=== PATIENT | male | born 1960 | race Caucasian/White ===

== ENCOUNTER 2017-09-14 01:08 | Outpatient (RCR) | payer BC, SELFPAY | END 2017-10-08 | LOC: INF 01:08 | PROVIDERS: PCP Family Medicine; Visit Provider Family Medicine | DX: D56.9 Thalassemia, unspecified (principal) | CPT/HCPCS: 99195 ==

== ENCOUNTER 2018-10-27 07:00 | Outpatient (CLI) | payer BC, SELFPAY ==
[2018-10-27 12:52] LABS: HCT 37.6 % (40.0-50.0); HGB 12.4 g/dL (13.5-17.5); Mean Corpuscular Hemoglobin 19.7 pg (27.0-33.0); Mean Corpuscular Volume 59.6 fL (80-95); Mean Platelet Volume 10.2 fL (8.0-11.0); Platelet Count 336 x1000/uL (130-400); RBC 6.31 m/cumm (4.50-6.00); RBC Distribution Width 17.7 % (11.8-14.1)
[2018-10-27 13:25] LABS: Calculated LDL 133 mg/dL; Cholesterol 189 mg/dL (50-200); Ferritin 147 ng/mL (8-388); HDL Cholesterol 38 mg/dL (40-60); Triglyceride 93 mg/dL (30-150)
== END 2018-10-27 07:20 ==
PROVIDERS: PCP Family Medicine; Visit Provider Family Medicine
DX: Z00.00 Encounter for general adult medical examination without abnormal findings (principal); Z12.5 Encounter for screening for malignant neoplasm of prostate; D64.9 Anemia, unspecified
CPT/HCPCS: 36415; 80061; 84153; 85027; 82728

== ENCOUNTER 2018-12-21 07:27 | Outpatient (CLI) | payer BC, SELFPAY ==
[2018-12-21 07:41] LABS: Abs Immature Grans 0.01 k/cumm (0.0-0.09); Absolute Basophil Count 0.03 k/cumm (0.0-0.2); Absolute Eosinophil Count 0.15 k/cumm (0.0-0.7); Absolute Lymphocyte Count 2.01 k/cumm (1.2-3.4); Absolute Monocyte Count 0.55 k/cumm (0.11-0.7); Absolute Neutrophil Count 2.65 k/cumm (1.2-6.7); Basophils % 0.6; Eosinophils % 2.8; HCT 38.8 % (40.0-50.0); HGB 12.7 g/dL (13.5-17.5); Immature Grans % 0.2; Lymphocytes % 37.2; Mean Corp. HGB Concentration 32.7 g/dL (32.0-36.0); Mean Corpuscular Hemoglobin 19.5 pg (27.0-33.0); Mean Corpuscular Volume 59.6 fL (80-95); Monocytes % 10.2; Platelet Count 351 x1000/uL (130-400); RBC 6.51 m/cumm (4.50-6.00); RBC Distribution Width 17.6 % (11.8-14.1)
[2018-12-21 08:05] LABS: Anisocytosis 1+; Diff Comment RBC Morph Reviewed; Hypochromasia 1+; Microcytosis 2+
[2018-12-21 08:06] LABS: Poikilocytes 2+
[2018-12-21 08:37] LABS: Anion Gap 10.2 mmol/L (3-11); BUN 22 mg/dL (7-18); CO2 28.8 mmol/L (21.0-32.0); CREATININE 0.95 mg/dL (0.70-1.30); Calcium 9.4 mg/dL (8.5-10.1); Chloride 103 mmol/L (98-107); Glucose 95 mg/dL (70-100); Potassium 4.3 mmol/L (3.5-5.1); Sodium 142 mmol/L (136-145)
== END 2018-12-21 07:47 ==
PROVIDERS: PCP Family Medicine; Visit Provider Family Medicine
DX: Q21.1 Atrial septal defect (principal); Z86.73 Personal history of transient ischemic attack (TIA), and cerebral infarction without residual deficits; D56.3 Thalassemia minor
CPT/HCPCS: 36415; 80048; 85025

== ENCOUNTER 2019-01-30 01:24 | Outpatient (RCR) | payer BC, SELFPAY | END 2019-02-07 23:59 | disposition home or self-care (01) | LOC: INF 01:24 | PROVIDERS: PCP Family Medicine; Visit Provider Naturopath | DX: D56.1 Beta thalassemia (principal) | CPT/HCPCS: 99195 ==

== ENCOUNTER 2019-01-30 07:26 | Outpatient (CLI) | payer BC, SELFPAY ==
[2019-01-30 07:45] LABS: HCT 38.5 % (40.0-50.0); HGB 12.5 g/dL (13.5-17.5)
[2019-01-30 08:34] LABS: Ferritin 124 ng/mL (26-388)
== END 2019-01-30 07:46 ==
PROVIDERS: PCP Family Medicine; Visit Provider Naturopath
DX: D56.1 Beta thalassemia (principal)
CPT/HCPCS: 36415; 82728; 85014; 85018

== ENCOUNTER 2019-07-18 03:35 | Outpatient (CLI) | payer BC, SELFPAY ==
[2019-07-18 07:34] LABS: HCT 37.1 % (40.0-50.0); HGB 12.3 g/dL (13.5-17.5); Mean Corp. HGB Concentration 33.2 g/dL (32.0-36.0); Mean Corpuscular Hemoglobin 19.7 pg (27.0-33.0); Mean Corpuscular Volume 59.5 fL (80-95); Mean Platelet Volume 9.6 fL (8.0-11.0); RBC 6.24 m/cumm (4.50-6.00)
[2019-07-18 08:08] LABS: Iron 147 ug/dL (65-175); Total Iron Binding Capacity 253 ug/dL (250-450); Transferrin Sat 58 % (20-55)
[2019-07-18 08:17] LABS: Platelet Count 289 x1000/uL (130-400)
[2019-07-18 08:21] LABS: Calculated LDL 135 mg/dL (<100); Cholesterol 198 mg/dL (<200); Ferritin 151 ng/mL (26-388); HDL Cholesterol 41 mg/dL (40-60); Triglyceride 114 mg/dL (<150)
[2019-07-19 09:51] LABS: PSA, Screening 2.3 ng/mL (0.0-3.5)
[2019-07-20 18:08] LABS: 25-Hydroxy D Total 33 ng/mL; 25-Hydroxy D2 <4.0 ng/mL; 25-Hydroxy D3 33 ng/mL
== END 2019-07-18 03:55 ==
PROVIDERS: PCP Family Medicine; Visit Provider Naturopath
DX: D56.1 Beta thalassemia (principal); E55.9 Vitamin D deficiency, unspecified; R39.15 Urgency of urination; E78.5 Hyperlipidemia, unspecified
CPT/HCPCS: 36415; 80061; 82306; 84153; 85027; 82728; 83540; 83550

== ENCOUNTER 2019-07-25 00:44 | Outpatient (RCR) | payer BC, SELFPAY | END 2019-08-08 23:59 | disposition home or self-care (01) | LOC: INF 00:44 | PROVIDERS: PCP Family Medicine; Visit Provider Naturopath | DX: D56.9 Thalassemia, unspecified (principal) | CPT/HCPCS: 99195 ==

== ENCOUNTER 2020-09-10 03:49 | Outpatient (CLI) | payer BC, SELFPAY ==
[2020-09-10 08:54] LABS: Calculated LDL 169 mg/dL (<100); Cholesterol 225 mg/dL (<200); HDL Cholesterol 41 mg/dL (40-60); Triglyceride 77 mg/dL (<150)
== END 2020-09-10 03:50 | disposition home or self-care (01) ==
LOC: LBO 03:51
PROVIDERS: PCP Nurse Practitioner; Visit Provider Nurse Practitioner
DX: E78.5 Hyperlipidemia, unspecified (principal)
CPT/HCPCS: 36415; 80061

== ENCOUNTER 2020-10-31 18:33 | Outpatient (REF) | payer BC, SELFPAY ==
[2020-11-02 13:24] LABS: COVID-19 RT-PCR UVMMC Result Negative (Negative)
== END 2020-10-31 18:34 | disposition home or self-care (01) ==
LOC: LBN 18:33
PROVIDERS: PCP Nurse Practitioner; Visit Provider Nurse Practitioner
DX: Z20.822 Contact with and (suspected) exposure to COVID-19 (principal); M79.18 Myalgia, other site; R53.83 Other fatigue
CPT/HCPCS: U0003

== ENCOUNTER 2020-11-05 04:27 | Outpatient (CLI) | payer BC, SELFPAY ==
[2020-11-06 11:17] LABS: Lyme Ab w Rflx to Lyme Confirm Positive (Negative)
[2020-11-06 12:05] LABS: Lyme IgG Ab Positive (Negative); Lyme IgM Ab Positive (Negative)
[2020-11-07 19:17] LABS: Anaplasma phagocytophilum Negative (Negative); B. miyamotoi PCR Negative (Negative); Babesia divergens/MO-1 Negative (Negative); Babesia duncani Negative (Negative); Babesia microti Negative (Negative); Ehrlichia chaffeensis Negative (Negative); Ehrlichia ewingii/canis Negative (Negative); Ehrlichia muris eauclairensis Negative (Negative)
== END 2020-11-05 04:28 | disposition home or self-care (01) ==
LOC: LBO 04:27
PROVIDERS: PCP Nurse Practitioner; Visit Provider Nurse Practitioner
DX: M35.89 Other specified systemic involvement of connective tissue; R53.83 Other fatigue; M79.10 Myalgia, unspecified site; M25.50 Pain in unspecified joint
CPT/HCPCS: 36415; 86617; 87798; 86618

== ENCOUNTER 2020-11-11 03:53 | Outpatient (CLI) | payer BC, SELFPAY ==
[2020-11-11 13:33] LABS: Kit/Specimen SENT
== END 2020-11-11 03:54 | disposition home or self-care (01) ==
LOC: LBO 03:53
PROVIDERS: PCP Nurse Practitioner; Visit Provider Naturopath
DX: M79.18 Myalgia, other site (principal); M25.59 Pain in other specified joint; R53.83 Other fatigue
CPT/HCPCS: 36415

== ENCOUNTER 2021-01-29 02:54 | Outpatient (CLI) | payer BC, SELFPAY ==
[2021-01-29 08:03] LABS: Abs Immature Grans 0.02 10^3/uL (0.0-0.06); Absolute Basophil Count 0.04 10^3/uL (0.0-0.2); Absolute Eosinophil Count 0.24 10^3/uL (0.0-0.7); Absolute Lymphocyte Count 2.46 10^3/uL (1.2-3.4); Absolute Neutrophil Count 2.93 10^3/uL (1.2-6.7); Basophils % 0.6; Eosinophils % 3.9; HCT 40.6 % (40.0-50.0); HGB 12.6 g/dL (13.5-17.5); Immature Grans % 0.3; Lymphocytes % 39.7; MCV 61.2 fL (80-95); MPV 9.9 fL (8.0-11.0); Monocytes % 8.1; Neutrophils % 47.4; Nucleated RBC 0 %; Platelet Count 324 10^3/uL (130-400); RBC 6.63 10^6/uL (4.36-5.78); RDW 17.8 % (11.8-14.1); RDW-SD 34.1 fL; WBC 6.19 10^3/uL (4.4-10.8)
[2021-01-29 08:34] LABS: Diff Comment RBC Morph Reviewed; Hypochromasia 1+; Microcytosis 3+
[2021-01-29 08:41] LABS: Hemoglobin A1C 5.5 % (<5.7)
[2021-01-29 09:06] LABS: Iron 63 ug/dL (65-175); Total Iron Binding Capacity 239 ug/dL (250-450); Transferrin Sat 26 % (20-55)
[2021-01-29 09:31] LABS: ALT 32 U/L (16-63); AST 19 U/L (15-37); Albumin 4.3 g/dL (3.4-5.0); Alkaline Phosphatase 61 U/L (46-116); Anion Gap 9.2 mmol/L (3-11); BUN 23 mg/dL (7-18); Bilirubin, Total 0.5 mg/dL (0.2-1.0); CO2 27.8 mmol/L (21.0-32.0); Calcium 9.1 mg/dL (8.5-10.1); Calculated LDL 161 mg/dL (<100); Chloride 103 mmol/L (98-107); Cholesterol 212 mg/dL (<200); Ferritin 163 ng/mL (26-388); Glucose 92 mg/dL (74-106); HDL Cholesterol 38 mg/dL (40-60); Potassium 4.1 mmol/L (3.5-5.1); Sodium 140 mmol/L (136-145); Triglyceride 68 mg/dL (<150)
[2021-01-30 05:29] LABS: Vitamin D 25 Total 47.8 ng/mL (30-100)
== END 2021-01-29 02:55 | disposition home or self-care (01) ==
LOC: LBO 02:54
PROVIDERS: PCP Nurse Practitioner; Visit Provider Naturopath
DX: E78.5 Hyperlipidemia, unspecified (principal); E55.9 Vitamin D deficiency, unspecified; R77.8 Other specified abnormalities of plasma proteins; D56.1 Beta thalassemia; Z13.1 Encounter for screening for diabetes mellitus
CPT/HCPCS: 36415; 80053; 80061; 82306; 82728; 83036; 83540; 83550; 85025

== ENCOUNTER 2021-05-02 03:34 | Outpatient (CLI) | payer BC, SELFPAY | END 2021-05-02 03:35 | disposition home or self-care (01) | LOC: LBO 03:34 | PROVIDERS: PCP Nurse Practitioner; Visit Provider Naturopath ==

== ENCOUNTER 2021-05-13 04:04 | Outpatient (RCR) | payer BC, SELFPAY ==
[2021-05-13 09:31] LABS: Ferritin 143 ng/mL (26-388)
== END 2021-06-07 23:59 | disposition home or self-care (01) ==
LOC: INF 04:04
PROVIDERS: PCP Nurse Practitioner; Visit Provider Naturopath
DX: R77.8 Other specified abnormalities of plasma proteins (principal)
CPT/HCPCS: 36415; 99195; 82728; 85018

== ENCOUNTER 2021-06-27 02:19 | Outpatient (CLI) | payer BC, SELFPAY ==
[2021-06-27 08:10] LABS: HCT 38.5 % (40.0-50.0); HGB 11.9 g/dL (13.5-17.5); MCH 19.6 pg (27.0-33.0); MCHC 30.9 % (32.0-36.0); MCV 63 fL (80-95); MPV 9.7 fL (8.0-11.0); Platelet Count 266 10^3/uL (130-400); RBC 6.07 10^6/uL (4.36-5.78); RDW 16.7 % (11.8-14.1); RDW-SD 34.7 fL; WBC 6.27 10^3/uL (4.4-10.8)
[2021-06-27 09:10] LABS: ALT 35 U/L (16-63); AST 23 U/L (15-37); Albumin 4.2 g/dL (3.4-5.0); Alkaline Phosphatase 63 U/L (46-116); Anion Gap 9.8 mmol/L (3-11); BUN 19 mg/dL (7-18); Bilirubin, Total 0.6 mg/dL (0.2-1.0); CO2 27.2 mmol/L (21.0-32.0); Calcium 8.7 mg/dL (8.5-10.1); Calculated LDL 135 mg/dL (<100); Chloride 107 mmol/L (98-107); Cholesterol 192 mg/dL (<200); Ferritin 104 ng/mL (26-388); Glucose 104 mg/dL (74-106); HDL Cholesterol 45 mg/dL (40-60); Potassium 4.4 mmol/L (3.5-5.1); Sodium 144 mmol/L (136-145); Total Protein 6.6 g/dL (6.4-8.2); Triglyceride 61 mg/dL (<150)
== END 2021-06-27 02:20 | disposition home or self-care (01) ==
LOC: LBO 02:20
PROVIDERS: PCP Nurse Practitioner; Visit Provider Naturopath
DX: E78.5 Hyperlipidemia, unspecified (principal); R77.8 Other specified abnormalities of plasma proteins; D56.1 Beta thalassemia
CPT/HCPCS: 36415; 80053; 80061; 85027; 82728

== ENCOUNTER 2021-09-16 03:10 | Outpatient (RCR) | payer BC, SELFPAY ==
[2021-09-16 08:43] LABS: HCT 38.8 % (40.0-50.0)
[2021-09-16 09:11] LABS: Ferritin 142 ng/mL (26-388)
== END 2021-10-08 23:59 | disposition home or self-care (01) ==
LOC: INF 03:10
PROVIDERS: PCP Nurse Practitioner; Visit Provider Naturopath
DX: R77.8 Other specified abnormalities of plasma proteins (principal)
CPT/HCPCS: 36415; 99195; 82728; 85014; 85018

== ENCOUNTER 2021-11-05 03:22 | Outpatient (CLI) | payer BC, SELFPAY ==
[2021-11-05 08:31] LABS: ALT 35 U/L (16-63); AST 24 U/L (15-37); Albumin 4.1 g/dL (3.4-5.0); Alkaline Phosphatase 62 U/L (46-116); Anion Gap 9.4 mmol/L (3-11); BUN 22 mg/dL (7-18); Bilirubin, Total 0.7 mg/dL (0.2-1.0); CO2 26.6 mmol/L (21.0-32.0); CREATININE 0.9 mg/dL (0.70-1.30); Calcium 8.9 mg/dL (8.5-10.1); Calculated LDL 120 mg/dL (<100); Chloride 105 mmol/L (98-107); Cholesterol 179 mg/dL (<200); Estimated GFR 98.38 (mL/min/1.73m2); Ferritin 84 ng/mL (26-388); Glucose 105 mg/dL (74-106); HDL Cholesterol 46 mg/dL (40-60); Iron 81 ug/dL (65-175); Potassium 3.8 mmol/L (3.5-5.1); Sodium 141 mmol/L (136-145); Total Iron Binding Capacity 217 ug/dL (250-450); Total Protein 7.1 g/dL (6.4-8.2); Transferrin Sat 37 % (20-55); Triglyceride 67 mg/dL (<150)
[2021-11-06 05:45] LABS: Vitamin D 25 Total 51.2 ng/mL (30-100)
[2021-11-07 08:08] LABS: Homocysteine 9.1 umol/L (5.0-13.9)
== END 2021-11-05 03:23 | disposition home or self-care (01) ==
LOC: LBO 03:22
PROVIDERS: PCP Nurse Practitioner; Visit Provider Naturopath
DX: E78.5 Hyperlipidemia, unspecified (principal); R77.8 Other specified abnormalities of plasma proteins; E55.9 Vitamin D deficiency, unspecified
CPT/HCPCS: 36415; 80053; 80061; 82306; 83090; 82728; 83540; 83550

== ENCOUNTER 2022-04-15 02:58 | Outpatient (CLI) | payer SELFPAY ==
[2022-04-15 11:24] LABS: Kit/Specimen SENT
== END 2022-04-15 02:59 | disposition home or self-care (01) ==
LOC: LBO 02:59
PROVIDERS: Naturopath; PCP Nurse Practitioner Family; Visit Provider Nurse Practitioner Family
DX: D56.3 Thalassemia minor (principal); Z02.89 Encounter for other administrative examinations
CPT/HCPCS: 36415

== ENCOUNTER 2022-12-24 04:22 | Outpatient (RCR) | payer SELFPAY | END 2023-01-07 23:59 | disposition home or self-care (01) | LOC: INF 04:22 | PROVIDERS: Visit Provider Neuromusculoskeletal Medicine & OMM | DX: R77.8 Other specified abnormalities of plasma proteins (principal) | CPT/HCPCS: 99195 ==

== ENCOUNTER 2023-10-01 14:30 | Outpatient (CLI) | payer SELFPAY ==
--- NOTE | 2023-10-01 09:55 | DI.RAD_ITS ---
Exam(s) XR CHEST 2V PA LATERAL EXAM: XR CHEST 2V PA LATERAL CLINICAL HISTORY: SOLITARY LYMPH NODE,R59.0 TECHNIQUE: 2D digital imaging was performed. Two views. COMPARISON: No exams were available for comparison FINDINGS: HEART: Normal size. Aorta: Not dilated. PULMONARY VASCULATURE: Normal. MEDIASTINUM: Unremarkable. LUNGS: Clear. PLEURAL SPACE: No pleural effusion or pneumothorax. BONE:Unremarkable for age. SOFT TISSUES: Unremarkable. IMPRESSION: No acute abnormality. DATA REPOSITORY: RADIATION DOSE DELIVERED:
== END 2023-10-01 14:50 ==
LOC: DI 14:37
PROVIDERS: PCP Neuromusculoskeletal Medicine & OMM; Visit Provider Neuromusculoskeletal Medicine & OMM
DX: R59.0 Localized enlarged lymph nodes (principal)
CPT/HCPCS: 71046

== ENCOUNTER 2023-10-28 02:52 | Outpatient (RCR) | payer SELFPAY | END 2023-11-08 23:59 | disposition home or self-care (01) | LOC: INF 02:52 | PROVIDERS: PCP Neuromusculoskeletal Medicine & OMM; Visit Provider Neuromusculoskeletal Medicine & OMM | DX: D56.1 Beta thalassemia | CPT/HCPCS: 99195 ==

== ENCOUNTER 2024-07-06 03:01 | Outpatient (RCR) | payer SELFPAY | END 2024-07-08 23:59 | disposition home or self-care (01) | LOC: INF 03:01 | PROVIDERS: PCP Neuromusculoskeletal Medicine & OMM; Visit Provider Neuromusculoskeletal Medicine & OMM | DX: D56.3 Thalassemia minor (principal) | CPT/HCPCS: 99195 ==

== ENCOUNTER 2024-07-27 00:54 | Outpatient (RCR) | payer SELFPAY | END 2024-08-07 23:59 | disposition home or self-care (01) | LOC: INF 00:54 | PROVIDERS: PCP Neuromusculoskeletal Medicine & OMM; Visit Provider Neuromusculoskeletal Medicine & OMM | DX: D56.3 Thalassemia minor (principal) | CPT/HCPCS: 99195 ==